=== PATIENT | female | born 1980 | race Caucasian/White ===

== ENCOUNTER 2017-12-26 17:33 | Inpatient (IN) | payer OTHER ==
[~2017-12-26] VITALS: Ht 157.5 cm; Wt 73.9 kg
[~2017-12-26 17:33] MED LIST: FERR1TAB51 PO; PREN-88 PO
[2017-12-26] MEDS ORDERED: DEXT 5%/LR + PITOCIN 20UNITS/L 1,000 ML IV SCH (17:41)
[2017-12-26] MEDS ORDERED: CARBOPROST TROMETHAMINE 250 MCG/ML AMPUL IM PRN (17:45)
[2017-12-26] MEDS ORDERED: BUTORPHANOL TARTRATE 2 MG/ML VIAL IV PRN (17:45)
[2017-12-26] MEDS ORDERED: NALOXONE HCL 0.4 MG/ML 1ML VIAL IM PRN (17:45)
[2017-12-26] MEDS ORDERED: METHYLERGONOVINE MALEATE 0.2 MG/ML IM PRN (17:45)
[2017-12-26] MEDS ORDERED: PENICILLIN G POTASSIUM 5 MMU in DEXT 5% WATER 100 ML IV NR (17:45)
[2017-12-26] MEDS ORDERED: LIDOCAINE HCL/PF 1% 10 MG/ML 30ML VIAL IJ SCH (18:00)
[2017-12-26] MEDS ORDERED: LACTATED RINGERS 1,000 ML IV SCH (18:00)
[2017-12-26 18:21] LABS: CLARITY URINE CLEAR (CLEAR); COLOR URINE YELLOW (YELLOW); KETONES URINE NEGATIVE (NEGATIVE); LEUKOCYTE ESTERASE URINE NEGATIVE (NEGATIVE); NITRITE URINE NEGATIVE (NEGATIVE); OCCULT BLOOD URINE 2+ (NEGATIVE); PROTEIN URINE TRACE (NEGATIVE); SPECIFIC GRAVITY URINE 1.023 (1.005-1.030)
[2017-12-26 18:24] LABS: BASOPHILS % 0.4 % (0.0-2.0); EOSINOPHILS % 0.9 % (0.0-5.0); HEMATOCRIT. 35.9 % (36.0-48.0); HEMOGLOBIN. 11.7 g/dL (12.0-16.0); LYMPHOCYTES % 22.1 % (20.0-50.0); MEAN CORPUSCULAR HEMOGLOBIN 26.3 pg (28.0-32.0); MEAN CORPUSCULAR VOLUME 80.7 fL (81.0-99.0); MEAN PLATELET VOLUME 10.6 fl (7.4-10.4); MONOCYTES % 4.7 % (2.0-8.0); NEUTROPHILS % 71.9 % (40.0-76.0); PLATELET 254 x1000/uL (130-400); RED BLOOD CELL COUNT 4.44 mill/uL (4.2-5.4); RED CELL DISTRIBUTION WIDTH 14.1 % (11.6-14.6)
[2017-12-26 18:25] LABS: INR 0.9; PARTIAL THROMBOPLASTIN TIME 25.4 sec (23.4-31.0); PROTHROMBIN TIME 9.4 sec (9.4-11.6)
[2017-12-26 18:36] LABS: *AMPHETAMINES SCREEN URINE NEGATIVE (NEGATIVE); *BARBITURATES SCREEN URINE NEGATIVE (NEGATIVE); *BENZODIAZEPINES SCREEN URINE NEGATIVE (NEGATIVE); *COCAINE SCREEN URINE NEGATIVE (NEGATIVE); METHADONE URINE SCREEN NEGATIVE (NEGATIVE); OPIATES URINE SCREEN NEGATIVE (NEGATIVE)
[2017-12-26 18:37] LABS: CANNABINOID URINE SCREEN NEGATIVE (NEGATIVE); PHENCYCLIDINE URINE SCREEN NEGATIVE (NEGATIVE)
[2017-12-26 19:02] LABS: HEPATITIS B SURFACE ANTIGEN NEGATIVE
[2017-12-26] MEDS ORDERED: MORPHINE SULFATE/PF 1MG/ML 10ML AMP ONE (19:18)
[2017-12-26] MEDS ORDERED: FENTANYL CITRATE/PF 50MCG/ML 2ML VIAL ONE (19:18)
[2017-12-26] MEDS ORDERED: PHENYLEPHRINE HCL 10 MG/ML 1ML (IV VIAL) IV ONE (19:19)
[2017-12-26] MEDS ORDERED: NALOXONE HCL 0.4 MG/ML 1ML VIAL IV PRN (21:15)
[2017-12-26] MEDS ORDERED: RHO(D) IMMUNE GLOBULIN 300 MCG/SYR IM PRN (21:15)
[2017-12-26] MEDS ORDERED: HYDROCODONE/ACETAMINOPHEN 5/325MG TABLET PO PRN (21:15)
[2017-12-26] MEDS ORDERED: DIPHENHYDRAMINE 50MG/ML VIAL IV PRN (21:15)
[2017-12-26] MEDS ORDERED: KETOROLAC 30MG/ML VIAL IV SCH (21:15)
[2017-12-26] MEDS ORDERED: LANOLIN OINT 0.25 GM TUBE TOP PRN (21:15)
[2017-12-26] MEDS ORDERED: ACETAMINOPHEN WITH CODEINE 300/30MG TABLET PO PRN (21:15)
[2017-12-26] MEDS ORDERED: ONDANSETRON HCL 4MG/2ML VIAL IV PRN ×2 (21:15)
[2017-12-26] MEDS ORDERED: IBUPROFEN 400MG TABLET PO PRN (21:15)
[2017-12-26] MEDS: DEXT 5%/LR + PITOCIN 20UNITS/L 1,000 ML IV SCH (21:52)
[2017-12-27] VITALS (11 sets, daily range): BP systolic 96–112; BP diastolic 52–73
[2017-12-27] MEDS: DEXT 5%/LR + PITOCIN 20UNITS/L 1,000 ML IV SCH (05:11)
[2017-12-27 07:19] LABS: BASOPHILS % 0.2 % (0.0-2.0); HEMATOCRIT. 23.8 % (36.0-48.0); LYMPHOCYTES % 8.6 % (20.0-50.0); MEAN CORPUSCULAR HEMOGLOBIN 27.1 pg (28.0-32.0); MEAN CORPUSCULAR VOLUME 81.1 fL (81.0-99.0); MEAN PLATELET VOLUME 10.5 fl (7.4-10.4); MONOCYTES % 5.9 % (2.0-8.0); NEUTROPHILS % 85.3 % (40.0-76.0); PLATELET 189 x1000/uL (130-400); RED BLOOD CELL COUNT 2.94 mill/uL (4.2-5.4); RED CELL DISTRIBUTION WIDTH 14.2 % (11.6-14.6)
[2017-12-27] MEDS: IBUPROFEN 800MG TABLET PO PRN (10:31)
[2017-12-27] MEDS: PRENATAL VIT/FE FUMARATE/FA TABLET PO SCH (10:32)
[2017-12-27] MEDS: DOCUSATE SODIUM 100MG CAPSULE PO SCH (21:01)
[2017-12-28] MEDS: IBUPROFEN 800MG TABLET PO PRN ×2 (00:54→08:22)
[2017-12-28 06:00] VITALS: BP 98/54
[2017-12-28 07:32] VITALS: BP 111/53
[2017-12-28] MEDS: PRENATAL VIT/FE FUMARATE/FA TABLET PO SCH (08:22)
[2017-12-28 15:26] VITALS: BP 104/65
[2017-12-28 19:45] VITALS: BP 109/57
[2017-12-28] MEDS: DOCUSATE SODIUM 100MG CAPSULE PO SCH (21:43)
[2017-12-29] VITALS: BP 106/66
[2017-12-29] MEDS: IBUPROFEN 800MG TABLET PO PRN (00:07)
[2017-12-29 04:00] VITALS: BP 103/55
[2017-12-29 09:00] VITALS: BP 100/60
[2017-12-29] MEDS: PRENATAL VIT/FE FUMARATE/FA TABLET PO SCH (12:04)
== END 2017-12-29 12:15 | disposition home or self-care (01) | DRG 540 ==
LOC: L&D 17:33 → OBSVTOIN 17:33 → 7EST PP/OB 12-27 00:06
PROVIDERS: ADMIT Obstetrics & Gynecology; ATTEND Obstetrics & Gynecology
PROC: 0UB70ZZ Excision of Bilateral Fallopian Tubes, Open Approach (ICD-10-PCS; 2017-12-26)
PROC: 10D00Z1 Extraction of Products of Conception, Low, Open Approach (ICD-10-PCS; principal; 2017-12-26 20:58)
PROC: 30233S1 Transfusion of Nonautologous Globulin into Peripheral Vein, Percutaneous Approach (ICD-10-PCS; 2017-12-28)
DX: O34.211 Maternal care for low transverse scar from previous cesarean delivery (principal); D62 Acute posthemorrhagic anemia; O32.1XX0 Maternal care for breech presentation, not applicable or unspecified; R00.0 Tachycardia, unspecified; O99.03 Anemia complicating the puerperium; O90.89 Other complications of the puerperium, not elsewhere classified; Z30.2 Encounter for sterilization; Z37.0 Single live birth; Z3A.40 40 weeks gestation of pregnancy
CPT/HCPCS: 36415; 80305; 81003; 85025; 85610; 85730; 86592; 86703; 86762; 86850; 86886; 86900; 87340; 88302; 88307; 90384; G0378; J1885; J2210; J2274; J2370; J2540; J2590; J3010; J3490; J7060; J7120; A4315